=== PATIENT | male | born 1990 ===

== ENCOUNTER 2016-06-24 21:31 | Emergency (ER) | payer SELFPAY ==
[~2016-06-24] VITALS: Ht 157.5 cm; Wt 56.0 kg
[2016-06-24 21:33] VITALS: Ht 157.5 cm; Wt 56.0 kg
[2016-06-24 21:38] VITALS: BP 140/92; PULSE 100; RESP 18
== END 2016-06-24 23:15 | disposition left against medical advice (07) ==
LOC: E/R 21:31
DX: Z53.21 Procedure and treatment not carried out due to patient leaving prior to being seen by health care provider (principal)